=== PATIENT | female | born 1975 | race Caucasian/White ===

== ENCOUNTER 2021-10-05 13:02 | Outpatient (REF) | payer OTHER, SELFPAY | END 2021-10-05 13:03 | disposition home or self-care (01) | LOC: HO.LAB 13:02 | PROVIDERS: Visit Provider Internal Medicine | DX: Z20.822 Contact with and (suspected) exposure to COVID-19 (principal) | CPT/HCPCS: C9803; U0003; U0005 ==

== ENCOUNTER 2022-05-18 09:29 | Emergency (ER) | payer OTHER, MEDICAID, SELFPAY ==
--- NOTE | 2022-05-18 09:42 | ED_ITS ---
HPI - General Adult General Chief complaint: Back Pain/Injury Stated complaint: back pain Time Seen by Provider: 05/18/22 09:42 Source: patient and EMS Mode of arrival: EMS Limitations: no limitations History of Present Illness HPI narrative: Patient is a 47 year old female presenting to the emergency department today with right sided low back pain. Patient states that she has been having low back pain that radiates down both legs and it has been going on intermittently for at least a week. Patient denies any dizziness, lightheadedness, abdominal pain, nausea, vomiting, fever, chills, blurry vision, double vision, loss of vision, chest pain, difficulty breathing, shortness of breath, night sweats, pain with urination, increased urinary frequency, increased urinary urgency, blood in his urine or stool, syncope or a near syncopal episode, recent trauma or falls, bowel incontinence, bladder incontinence, bowel retention, bladder retention, or any other complaints at this time. Onset (ago): week(s) (1) Location: back Severity: mild Severity scale (1-10): 2 Quality: dull Pain Consistency: intermittent Relieving factors: none Exacerbating factors: none Associated symptoms: denies other symptoms Treatments prior to arrival: none Related Data Previous Rx's Medication Instructions Recorded cyclobenzaprine 5 mg tablet 5 mg PO TID PRN back pain 7 days 05/18/22 #21 tabs Allergies Allergy/AdvReac Type Severity Reaction Status Date / Time No Known Allergies Allergy Verified 05/18/22 09:46 Review of Systems Constitutional: Constitutional: Reports no additional constitutional complaints, Denies chills, Denies fever(s) and Denies night sweats Eyes: Eyes: Reports no additional eye complaints, Denies blurry vision, Denies change in vision, Denies diplopia, Denies eye discharge, Denies loss of vision and Denies eye pain ENT: Denies dizziness Cardiovascular: Cardiovascular: Reports no additional cardiovascular complaints, Denies chest pain, Denies lightheadedness, Denies Loss of Consciousness and Denies dyspnea Respiratory: Respiratory: Reports no additional respiratory complaints and Denies dyspnea Gastrointestinal: Gastrointestinal: Reports no additional gastrointestinal complaints, Denies abdominal pain, Denies melena, Denies hematochezia, Denies change in bowel habits and Denies change in stool character Genitourinary: Genitourinary: Denies hematuria, Denies urinary frequency, Denies dysuria, Denies urinary incontinence, Denies urinary hesitancy and Denies urinary urgency Musculoskeletal: Musculoskeletal: Reports no additional musculoskeletal complaints, Reports back pain, Denies numbness and Denies tingling Neurologic: Denies dizziness, Denies loss of vision, Denies numbness and Denies tingling Psychiatric: Psychiatric: Reports no additional psychiatric complaints Endocrine: Endocrine: Reports no additional endocrine complaints Hematologic/Lymphatic: Hematologic/Lymphatic: Reports no additional hematologic/lymphatic complaints Allergic/Immunologic: Allergic/Immunologic: Reports no additional allergic/immunologic complaints [facility] Past Medical History Attestation statement: The following information was validated with the patient. Source: old records reviewed Social History Social History Advance Directives: No Advance Directives Information Provided: Yes Advance Directives on File: No Physical Exam ED Vital Signs: Vital Signs - 24 hr 05/18/22 09:43 Temperature 98.6 F Pulse Rate 89 Respiratory Rate 16 Blood Pressure 133/70 Pulse Oximetry 96 Oxygen Delivery Method Room Air BMI result Body Mass Index 38.2 Const General: cooperative, no acute distress, alert and awake Nutritional Appearance: well nourished Orientation/consciousness: patient oriented x3 Limitations: no limitations HENMT Head: Yes normal to inspection and Yes atraumatic Ears: hearing grossly normal bilaterally and external ears normal General nose exam: Normal external nose present, no nasal discharge noted and no epistaxis Face and sinus: Yes normal facial exam, No abrasion and No laceration Mouth: Normal oral and palatal mucosa present, no drooling and no muffled voice Eyes General: appearance normal, both eyes and all related structures Periorbital: periorbital findings normal Eyelids: Yes eyelids normal Conjunctivae: conjunctivae normal Pupils: Equal, round and reactive pupils present EOM: EOMs intact bilaterally Neck Neck: Yes normal visual inspection, Yes full ROM and Yes no lymphadenopathy Chest Chest palpation & inspection: normal inspection of the chest Resp Effort & Inspection: normal respiratory effort and able to speak in complete sentences Auscultation: clear to auscultation bilaterally Cardio Rate: regular rate Rhythm: regular rhythm GI Inspection: Yes normal to inspection General: Yes no CVA tenderness Back/Spine/Pelvis Back: no CVA tenderness Cervical Spine: normal cervical lordosis and cervical ROM normal Thoracic/Lumbar Spine: thoracic and lumbar spine normal to inspection and thoraco-lumbar ROM normal Pelvis: no pain with anterior-posterior compression Neuro General: patient oriented x3 and moves all extremities Cranial nerves: Yes Equal, round and reactive pupils present Cognition (Neuro): normal cognition Motor exam (neuro): 5/5 motor strength present throughout Sensory Exam: Normal double simultaneous stimulation for sensation Coordination: [id number] test normal Extrem General: Yes normal to inspection, Yes full ROM and Yes capillary refill normal Psych Appearance: grossly normal Mental Status: mental status grossly normal Affect: normal affect Attitude: cooperative Thought process: Normal thought process present Thought content: Normal thought content present Insight: Good insight present (Psych) Medical Decision Making MDM Narrative Medical decision making narrative: Patient is a 47 year old female presenting to the emergency department today with low back pain. Patient's physical exam was unremarkable. I explained my physical exam findings to the patient. I answered all questions asked by the patient. Patient received IM Toradol and PO Flexeril which she stated helped her symptoms significantly. I stressed the importance of the patient taking her medication as prescribed. I stressed the importance of the patient following up with her primary care provider. I stressed the importance of the patient returning to the emergency department immediately if her symptoms were to worsen or if she were to develop any dizziness, shortness of breath, difficulty breathing, chest pain, blurry vision, loss of vision, nausea, vomiting, abdominal pain, fever, chills, back pain, or any other complaints. Patient verbalized agreement and understanding with this treatment plan and discharge. Differential Diagnosis Differential Diagnosis: low back pain, sciatica Medical Records Medical records reviewed: Yes I reviewed the patient's medical records. Discharge Plan Discharge Clinical Impression: Sciatica Patient Disposition: Home, Self-Care Instructions: Sciatica (ED) Additional Instructions: Follow up with your primary care provider and an orthopedic provider. Return to the emergency department immediately if your symptoms worsen or if you develop any dizziness, shortness of breath, difficulty breathing, chest pain, blurry vision, loss of vision, nausea, vomiting, abdominal pain, fever, chills, back pain, or any other complaints. Prescriptions: New cyclobenzaprine 5 mg tablet 5 mg PO TID PRN (Reason: back pain) 7 Days Qty: 21 0RF Referrals: [facility] [place] [facility] [Provider Group] (Call to establish and follow up with a primary care provider. If you already have a primary care provider, please call and follow up with their office. ) [facility] [place] [facility] [place] [Provider Group] (Call to establish and follow up with a primary care provider. If you already have a primary care provider, please call and follow up with their office. ) [facility] [place] [facility] [Provider Group] (Call to establish and follow up with a primary care provider. If you already have a primary care provider, please call and follow up with their office. ) [facility] [place] Group] (Call to establish and follow up with an orthopedic provider. If you already have an orthopedic provider, please call and follow up with their office. ) Stand Alone Forms: Work/School Release Interventions: ED Discharge Assessment Last Done: 05/18/22 10:51 Discharge Date/Time: 05/18/22 10:55 Print Language: Georgian
[2022-05-18 09:43] VITALS: BP 116/78; BP 133/70; PULSE 74; PULSE 89; RESP 16; TEMP 37; O2SAT 96; BMI 38.2
[2022-05-18] MEDS: Cyclobenzaprine HCl 5 MG TABLET PO (10:45)
[2022-05-18] MEDS: Ketorolac Tromethamine 15 MG/ML VIAL IM (10:47)
== END 2022-05-18 10:55 | disposition home or self-care (01) ==
PROVIDERS: Emergency Provider Emergency Medicine
DX: M54.42 Lumbago with sciatica, left side (principal); M54.41 Lumbago with sciatica, right side
CPT/HCPCS: 96372; 99283; 99284; J1885

== ENCOUNTER 2025-10-22 13:11 | Emergency (ER) | payer OTHER, SELFPAY ==
[2025-10-22 13:19] VITALS: BP 130/90; PULSE 76; O2SAT 98
[2025-10-22 13:20] VITALS: BMI 42.0
[2025-10-22 13:48] VITALS: BP 135/62; PULSE 70; RESP 18; O2SAT 97
--- NOTE | 2025-10-22 14:25 | ED_ITS ---
HPI - Back Pain/Injury General Chief Complaint: Back Pain/Injury Stated Complaint: back pain Time Seen by Provider: 10/22/25 13:48 History of Present Illness ED Provider: SHELTON WRIGHT Narrative: 50-year-old female, otherwise healthy. Comes in with atraumatic right lumb osacral pain, no radiation to the extremities. Mild difficulty walking secondary to pain, but no objective or reported focal motor weakness, no incontinence or sensory complaints. She feels she gets a flare like this about once every winter. Denies fever or chills, no incontinence or retention. Related Data Previous Rx's ?Medication ?Instructions ?Recorded cyclobenzaprine 5 mg tablet 5 mg PO TID PRN back pain 7 days 05/18/22 #21 tabs ibuprofen 400 mg tablet 400 mg PO Q6H PRN fever #14 tabs 10/22/25 methocarbamol 750 mg tablet 750 mg PO Q8H PRN spasm #1 0 tabs 10/22/25 Allergies Allergy/AdvReac Type Severity Reaction Status Date / Time No Known Allergies Allergy Verified 10/22/25 13:23 [facility] Social History Social History Advance Directives: No Advance Directives Information Provided: Yes Physical Exam Exam: Exam: EXAM: Gen: Alert, awake, well appearing, well hydrated. Head: Atraumatic Eyes: Anicteric, Normal conjunctiva. ENT: Moist mucosa, no pallor. Neck: Supple. Respiratory: Breathing comfortably, No distress.Clear to auscultation bilaterally, symmetric chest expansion, No wheeze, rales, ronchi. Cardiovascular: Regular rate and rhythm. No murmurs or rub. Well perfused periphery, warm extremities. No edema. Abdominal: Soft, no objective distension. No palpable masses or obvious organomegaly. No focal tenderness, no guarding, no rebound tenderness or other peritoneal findings. : No flank tenderness. Neuro: Alert. Gross movement of all extremities intact. 5/5 strength, bilateral, lower extremity, proximal and distal. Normal tone. MSK: Tender paraspinal musculature about L2-L3. Right side. No bruising, no midline step-off, or midline tenderness. Vital signs: See flowsheet Vital Signs: Vital Signs: Last Vital Signs Temp 97.8 F 10/22/25 16:07 Pulse 65 10/22/25 16:07 Resp 18 10/22/25 16:07 BP 118/56 L 10/22/25 16:07 Pulse Ox 100 10/22/25 16:07 O2 Del Method Room Air 10/22/25 16:07 BMI result Body Mass Index 42.0 Medications Administered Discontinued Medications Generic Name Dose Route Start Last Admin Trade Name Freq PRN Reason Stop Dose Admin Acetaminophen 975 mg 10/22/25 14:25 10/22/25 14:45 Acetaminophen 325 Mg Tablet PO 10/22/25 14:26 975 mg ONCE ONE Administration Lidocaine 1 patch 10/22/25 14:25 10/22/25 14:46 Lidocaine 4 % Patch Adh..Patch TRANSDERMA 10/22/25 14:26 1 patch ONCE ONE Administration Protocol Methocarbamol 750 mg 10/22/25 14:25 10/22/25 14:45 Methocarbamol 750 Mg Tablet PO 10/22/25 14:26 750 mg ONCE ONE Administration Medical Decision Making Medical Decision Making MDM Narrative: Medical Decision Makin-year-old female with atraumatic right low back pain no neurologic symptoms or signs on exam. No fever no risk factors for spinal epidural abscess or TEST DESIGNER infection. Clinically doubt TEST DESIGNER compression. Preliminary Favored Differential Diagnosis: Lumbar strain, sciatica, DJD, radiculopathy among additional considered etiologies Testing Interpreted Independently: ?See below for details Radiology or Lab testing Results Reviewed: ?See below for details Consults: ?See below for details Independent Historians/External Chart Reviews: ?See below for details Social Determinants of Health Impacting MDM/Planning: ?See below for details Discharge Plan Discharge Clinical Impression: Back pain Patient Disposition: Home, Self-Care Instructions: Back Pain (ED) Additional Instructions: We have not identified based on examining you any severe or emergent causes of back pain likely this is a lumbar strain but we can not be 100% sure. We recommend a conservative treatment symptom management you can use ibuprofen, Tylenol, lidocaine patches, heating pad or cooling pad massage to the area Epsom salt bath stretching and flexing of the low back call your primary doctor for follow up Prescriptions: New ibuprofen 400 mg tablet 400 mg PO Q6H PRN (Reason: fever) Qty: 14 0RF methocarbamol 750 mg tablet 750 mg PO Q8H PRN (Reason: spasm) Qty: 10 0RF No Action cyclobenzaprine 5 mg tablet 5 mg PO TID PRN (Reason: back pain) 7 Days Qty: 21 0RF Interventions: ED Discharge Assessment Last Done: 10/22/25 16:07 Discharge Date/Time: 10/22/25 16:11 Print Language: Mohawk
[2025-10-22] MEDS: Lidocaine 4 % Patch ADH..PATCH 1 PATCH TRANSDERMA (14:46)
[2025-10-22 16:06] VITALS: BP 118/56; PULSE 65; RESP 18; TEMP 36.6; O2SAT 100
[2025-10-22 16:07] VITALS: BP 118/56; PULSE 65; RESP 18; TEMP 36.6; O2SAT 100
--- OUTSIDE RECORDS SUMMARY | 2025-10-22 18:13 | XMS_ITS | Clinical Summary ---
Author Organization [facility] Address [address] [place] [phone] Phone Care Team Providers Care Criminal Justice Faculty Name Role Phone Ijeoma Moon NP Primary Care Provide r Allergies No known active allergies Social History Tobacco Use Types Packs/Day Years Used Date Smoking Tobacco: Never Assessed Comments Unknown Sex and Gender Information Value Date Recorded Sex Assigned at Not on file Legal Sex Female 6:13 PM EST Gender Identity Not on file Sexual Orientation Not on file Last Filed Vital Signs Vital Sign Reading Time Taken Comments Blood Pressure 148/91 07/14/2025 7:50 PM EDT Pulse 80 07/14/2025 7:50 PM EDT Temperature 36.6 C (97.9 F) 07/14/2025 7:50 PM EDT Respiratory Rate 17 07/14/2025 7:50 PM EDT Oxygen Saturation 99% 07/14/2025 7:50 PM EDT Inhaled Oxygen Concentration - - Weight 99.8 kg (220 lb) 07/14/2025 7:50 PM EDT Height 165.1 cm (5' 5 ) 07/14/2025 7:50 PM EDT Body Mass Index 36.61 07/14/2025 7:50 PM EDT Plan of Treatment Health Maintenance Due Date Last Done Comments Breast Cancer Screening 1974 Colorectal Cancer Screening: Colonoscopy 1974 Diabetes: Annual Foot Exam 1984 Diabetes: Annual Retina Eye Exam 1984 DTaP,Tdap,and Td Vaccines (1 - Tdap) 1993 Pneumococcal Vaccine: 50+ Years (1 of 2 - PCV) 1993 Cervical Cancer Screening: P ap Smear 1995 RSV Immunization Adult Patients (1 - Risk 50-74 years 1-dose series) 2024 Zoster Vaccines (1 of 2) 2024 Hepatitis B Vaccines (2 of 2 - CpG 2-dose series) 10/04/2024 09/06/2024 Depression Screening 11/06/2024 COVID-19 Vaccine (1 - 2024-2 6 season) 2025 Influenza Vaccine (#1) 2025 09/06/2024 Diabetes: Annual Urine Albumin-Creatinine Ratio (uACR) 07/14/2025 Diabetes: Blood Sugar Contro l Test (HGBA1C) 07/14/2025 11/22/2024 HIV Screening 07/14/2025 Medicare Annual Wellness Visit 07/14/2025 Social Influencers of Health Screening 07/14/2025 Diabetes: Annual GFR (Glomerular Filtration Rate) 11/22/2025 11/22/2024 Cholesterol Screening (Lipid Panel) 11/22/2029 11/22/2024, 01/06/2023 Hepatitis C Screening Completed 01/06/2023 HIB Vaccines Aged Out No longer eligi ble based on patient's age to complete this topic HPV Vaccines Aged Out No longer eligi ble based on patient's age to complete this topic Hepatitis A Vaccines Aged Out No long er eligible based on patient's age to complete this topic IPV Vaccines Aged Out No longer eligi ble based on patient's age to complete this topic MMR Vaccines Aged Out No longer eligi ble based on patient's age to complete this topic Meningococcal ACWY Vaccine Aged Out N o longer eligible based on patient's age to complete this topic Meningococcal B Vaccine Aged Out No l onger eligible based on patient's age to complete this topic RSV Immunization Patients Under 20 months Aged Out No longer eligible b ased on patient's age to complete this topic Varicella Vaccines Aged Out No longer eligible based on patient's age to complete this topic Insurance [facility] MEDIC[facility] Member Subscriber Plan / Payer (Ef fective 2023-Present) Name:DARON BACH Relation to Subscriber:Self Name:Daron Bach Payer ID:[id number] Group ID:[id number] Type:Not on file Address: [address] [id number] Care Teams Criminal Justice Faculty Relationship Specialty Start Date End Date Ijeoma Moon NP [address] [place] [phone] PCP - General Family Medicine 07/14/25
== END 2025-10-22 16:11 | disposition home or self-care (01) ==
PROVIDERS: Emergency Provider Emergency Medicine; PCP Dentist General Practice
DX: M54.50 Low back pain, unspecified (principal)
CPT/HCPCS: 99283